=== PATIENT | male | born 1960 | race African-American/Black ===

== ENCOUNTER 2016-10-23 10:32 | Inpatient (IN) | payer MEDICAID, OTHER ==
[~2016-10-23] VITALS: Ht 170.2 cm; Wt 84.8 kg
[~2016-10-23 10:32] MED LIST: ASPI-1159 PO; ATOR-2 PO; CARV12.545 PO; CLON2TAB PO; CLOP75TA2 PO; DOCU-150 PO; FERR-63 PO; GABA-531 PO; IBUP-1509 PO; IOHEXOL-300 100 ML BOTTLE ONE; LISI-186 PO; METF10002 PO; NAPR-681 PO; OXCA300T4 PO; QUET400T PO; SODIUM CHLORIDE 0.9% 10ML VIAL ONE; TAMS0.4C31 PO
[2016-10-23] MEDS ORDERED: KETOROLAC 30MG/ML VIAL IV STA (11:34)
[2016-10-23] MEDS ORDERED: ONDANSETRON HCL 4MG/2ML VIAL IV STA (11:34)
[2016-10-23] MEDS ORDERED: MAGNESIUM CITRATE 300ML SOLUTION PO ONE (11:45)
[2016-10-23 12:02] LABS: BASOPHILS % 0.9 % (0.0-2.0); EOSINOPHILS % 1.5 % (0.0-5.0); HEMATOCRIT. 40.5 % (42.0-52.0); HEMOGLOBIN. 13.3 g/dL (14.0-18.0); LYMPHOCYTES % 24.3 % (20.0-50.0); MEAN CORPUSCULAR HEMOGLOBIN 24.9 pg (28.0-32.0); MEAN CORPUSCULAR VOLUME 76.2 fL (80.0-94.0); MEAN PLATELET VOLUME 8.2 fl (7.4-10.4); MONOCYTES % 13.2 % (2.0-8.0); NEUTROPHILS % 60.1 % (40.0-76.0); PLATELET 217 x1000/uL (130-400); RED BLOOD CELL COUNT 5.32 mill/uL (4.7-6.1); RED CELL DISTRIBUTION WIDTH 20.6 % (11.6-14.6)
[2016-10-23 12:09] LABS: CHLORIDE 100 mEq/L (98-107); INR 1.1; PROTHROMBIN TIME 11.1 sec (9.4-11.6)
[2016-10-23 12:17] LABS: CARBON DIOXIDE 25 mEq/L (21-32)
[2016-10-23 12:41] LABS: CLARITY URINE CLEAR (CLEAR); COLOR URINE YELLOW (YELLOW); GLUCOSE URINE NEGATIVE (NEGATIVE); KETONES URINE NEGATIVE (NEGATIVE); LEUKOCYTE ESTERASE URINE NEGATIVE (NEGATIVE); NITRITE URINE NEGATIVE (NEGATIVE); OCCULT BLOOD URINE NEGATIVE (NEGATIVE); PH URINE 7.5 (4.5-8.0); PROTEIN URINE NEGATIVE (NEGATIVE); SPECIFIC GRAVITY URINE 1.021 (1.005-1.030); UROBILINOGEN URINE 0.2 E.U./dL (0.2-1.0)
[2016-10-23 13:10] LABS: *AMPHETAMINES SCREEN URINE NEGATIVE (NEGATIVE); *BARBITURATES SCREEN URINE NEGATIVE (NEGATIVE); *BENZODIAZEPINES SCREEN URINE NEGATIVE (NEGATIVE); *COCAINE SCREEN URINE NEGATIVE (NEGATIVE); CANNABINOID URINE SCREEN NEGATIVE (NEGATIVE); METHADONE URINE SCREEN NEGATIVE (NEGATIVE); OPIATES URINE SCREEN NEGATIVE (NEGATIVE); PHENCYCLIDINE URINE SCREEN NEGATIVE (NEGATIVE)
[2016-10-23] MEDS ORDERED: DOCUSATE SODIUM 250MG CAPSULE PO ONE (14:15)
[2016-10-23] MEDS ORDERED: MORPHINE SULFATE 2 MG/ML CPJ (NOT FOR IM USE) IV ONE (14:30)
[2016-10-23] MEDS ORDERED: ONDANSETRON HCL 4MG/2ML VIAL IV ONE (14:30)
[2016-10-23] MEDS ORDERED: MORPHINE SULFATE 4 MG/ML CPJ (NOT FOR IM USE) IV ONE (14:45)
[2016-10-23 16:07] VITALS: BP 96/54
[2016-10-23] MEDS ORDERED: ABIL5 PO (16:34)
[2016-10-23] MEDS ORDERED: FAMO-134 PO (16:34)
[2016-10-23] MEDS ORDERED: ALBU18HF2 IH (16:46)
[2016-10-23] MEDS ORDERED: ELIQUIS PO (16:46)
[2016-10-23] MEDS ORDERED: DULO30CA2 PO (16:49)
[2016-10-23] MEDS ORDERED: CLON1TAB4 PO (16:49)
[2016-10-23] MEDS ORDERED: CLONIDINE 0.1MG TABLET PO PRN (17:15)
[2016-10-23] MEDS ORDERED: HYDROCODONE/ACETAMINOPHEN 5/325MG TABLET PO PRN (17:15)
[2016-10-23] MEDS ORDERED: IPRATROPIUM/ALBUTEROL 0.5-3(2.5)MG/3ML NEB INH PRN (17:15)
[2016-10-23] MEDS ORDERED: ONDANSETRON HCL 4MG/2ML VIAL IV PRN (17:15)
[2016-10-23] MEDS ORDERED: ACETAMINOPHEN 325MG TABLET PO PRN (17:15)
[2016-10-23] MEDS ORDERED: DIPHENHYDRAMINE 50MG/ML VIAL IV PRN (17:15)
[2016-10-23] MEDS ORDERED: DEXTROSE 50% WATER 50ML SYRINGE IV PRN (17:30)
[2016-10-23] MEDS: BLOOD SUGAR DIAGNOSTIC STRIP TEST SCH ×2 (17:50→21:13)
[2016-10-23] MEDS: INSULIN LISPRO 100 UNITS/ML SUBCUT SCH ×2 (17:50→21:13)
[2016-10-23] MEDS: MORPHINE SULFATE 4 MG/ML CPJ (NOT FOR IM USE) IV PRN ×2 (19:05→23:32)
[2016-10-23 20:00] VITALS: BP 107/60
[2016-10-23] MEDS ORDERED: DOCUSATE SODIUM 100MG CAPSULE PO PRN (20:30)
[2016-10-23] MEDS ORDERED: TAMSULOSIN HCL 0.4MG SR CAPSULE PO SCH (21:00)
[2016-10-23] MEDS ORDERED: QUETIAPINE FUMARATE 100MG TABLET PO SCH (21:00)
[2016-10-23] MEDS: CARVEDILOL 12.5MG TABLET PO SCH (21:00)
[2016-10-24] VITALS: BP 106/49
[2016-10-24 04:00] VITALS: BP 96/62
[2016-10-24] MEDS: BLOOD SUGAR DIAGNOSTIC STRIP TEST SCH ×2 (06:17→12:50)
[2016-10-24 06:24] LABS: BASOPHILS % 0.7 % (0.0-2.0); HEMATOCRIT. 39.4 % (42.0-52.0); HEMOGLOBIN. 12.9 g/dL (14.0-18.0); LYMPHOCYTES % 27.1 % (20.0-50.0); MEAN CORPUSCULAR HEMOGLOBIN 25.3 pg (28.0-32.0); MEAN CORPUSCULAR VOLUME 77.1 fL (80.0-94.0); MEAN PLATELET VOLUME 8.1 fl (7.4-10.4); MONOCYTES % 13.7 % (2.0-8.0); NEUTROPHILS % 56.5 % (40.0-76.0); PLATELET 185 x1000/uL (130-400); RED BLOOD CELL COUNT 5.11 mill/uL (4.7-6.1); RED CELL DISTRIBUTION WIDTH 20.7 % (11.6-14.6)
[2016-10-24 07:10] LABS: CARBON DIOXIDE 27 mEq/L (21-32); CHLORIDE 98 mEq/L (98-107); HDL CHOLESTEROL 45 mg/dL (40-59); LDL CHOLESTEROL 134 mg/dL (5-100)
[2016-10-24] MEDS: NAPROXEN 500MG TABLET PO SCH ×2 (07:50→11:14)
[2016-10-24] MEDS: INSULIN LISPRO 100 UNITS/ML SUBCUT SCH ×3 (07:50→13:07)
[2016-10-24 08:00] VITALS: BP 112/66
[2016-10-24] MEDS: CLOPIDOGREL 75MG TABLET PO SCH ×2 (09:00→11:14)
[2016-10-24] MEDS: OXCARBAZEPINE 300MG TABLET PO SCH ×2 (09:00→11:15)
[2016-10-24] MEDS: CARVEDILOL 12.5MG TABLET PO SCH ×2 (09:00→11:15)
[2016-10-24] MEDS: DULOXETINE HCL 30MG DR CAPSULE PO SCH ×2 (09:00→11:15)
[2016-10-24] MEDS: ASPIRIN 81MG EC TABLET PO SCH ×2 (09:00→11:14)
[2016-10-24] MEDS: LISINOPRIL 5MG TABLET PO SCH ×2 (09:00→11:15)
[2016-10-24] MEDS: GABAPENTIN 300MG CAPSULE PO SCH ×3 (09:00→13:16)
[2016-10-24] MEDS: MORPHINE SULFATE 4 MG/ML CPJ (NOT FOR IM USE) IV PRN (11:16)
[2016-10-24 12:00] VITALS: BP 118/71
[2016-10-24] MEDS ORDERED: SORBITOL 70% SOLN 30ML PO NR (12:30)
[2016-10-24] MEDS ORDERED: EZ-HD(BARIUM SULFATE 135ML BTL) PO ONE (14:00)
[2016-10-24 15:21] VITALS: BP 118/71
[2016-10-24] MEDS ORDERED: CLONAZEPAM 1MG TABLET PO SCH (17:00)
== END 2016-10-24 16:37 | DRG 254 ==
LOC: ER 10:51 → 6EST 15:29 → ENRESERV 15:47
PROVIDERS: ADMIT Internal Medicine; ATTEND Internal Medicine
DX: K59.00 Constipation, unspecified (principal); J84.9 Interstitial pulmonary disease, unspecified; I11.9 Hypertensive heart disease without heart failure; E11.9 Type 2 diabetes mellitus without complications; E78.5 Hyperlipidemia, unspecified; D64.9 Anemia, unspecified; F31.9 Bipolar disorder, unspecified; G89.29 Other chronic pain; I25.5 Ischemic cardiomyopathy; E78.00 Pure hypercholesterolemia, unspecified; I25.10 Atherosclerotic heart disease of native coronary artery without angina pectoris; Z95.810 Presence of automatic (implantable) cardiac defibrillator; Z88.6 Allergy status to analgesic agent; Z79.84 Long term (current) use of oral hypoglycemic drugs; Z79.899 Other long term (current) drug therapy
CPT/HCPCS: 36415; 74177; 74250; 80053; 80061; 80305; 81003; 82962; 83036; 83690; 85025; 85610; 87040; 93005; 96374; 96375; 99285; A4216; J1815; J1885; J2270; J2405; Q9967

== ENCOUNTER 2016-12-18 11:47 | Emergency (ER) | payer OTHER ==
[~2016-12-18] VITALS: Ht 177.8 cm; Wt 80.0 kg
[~2016-12-18 11:47] MED LIST changes: +ABIL5 PO; +ALBU18HF2 IH; +CLON1TAB4 PO; +CLOP75TA16 PO; -CLOP75TA2 PO; +DULO30CA2 PO; +ELIQUIS PO; +FAMO-134 PO; -IBUP-1509 PO; +IBUP-2028 PO; -IOHEXOL-300 100 ML BOTTLE ONE; -SODIUM CHLORIDE 0.9% 10ML VIAL ONE
[2016-12-18] MEDS ORDERED: SODIUM CHLORIDE 0.9% 1,000 ML IV ONE (12:45)
[2016-12-18] MEDS ORDERED: FAMOTIDINE 20MG/2ML VIAL IV STA (12:45)
[2016-12-18 13:09] LABS: BASOPHILS % 0.8 % (0.0-2.0); EOSINOPHILS % 1.5 % (0.0-5.0); HEMATOCRIT. 35.7 % (42.0-52.0); LYMPHOCYTES % 27.2 % (20.0-50.0); MEAN CORPUSCULAR HEMOGLOBIN 27.1 pg (28.0-32.0); MEAN CORPUSCULAR VOLUME 80.5 fL (80.0-94.0); MEAN PLATELET VOLUME 7.9 fl (7.4-10.4); MONOCYTES % 10.7 % (2.0-8.0); NEUTROPHILS % 59.8 % (40.0-76.0); PLATELET 226 x1000/uL (130-400); RED BLOOD CELL COUNT 4.44 mill/uL (4.7-6.1); RED CELL DISTRIBUTION WIDTH 15.7 % (11.6-14.6)
[2016-12-18 13:12] LABS: CHLORIDE 103 mEq/L (98-107)
[2016-12-18 13:20] LABS: CARBON DIOXIDE 25 mEq/L (21-32)
[2016-12-18] MEDS ORDERED: MAGNESIUM/ALUMINUM HYDROXIDE/SIMETHICONE 30ML UDC PO STA (13:42)
[2016-12-18] MEDS ORDERED: DICYCLOMINE 10 MG/5 ML ORAL SYR PO STA (13:42)
[2016-12-18] MEDS ORDERED: VISCOUS LIDOCAINE 2% 15 ML UDC PO STA (13:42)
[2016-12-18] MEDS ORDERED: HYDROXYZINE 25MG TABLET PO ONE (13:45)
[2016-12-18] MEDS ORDERED: ONDANSETRON 4MG ODT PO ONE (13:45)
[2016-12-18 14:25] VITALS: BP 18/75
== END 2016-12-18 15:45 | disposition home or self-care (01) ==
LOC: ER 11:47
DX: L29.9 Pruritus, unspecified (principal); R10.13 Epigastric pain; R11.2 Nausea with vomiting, unspecified; I10 Essential (primary) hypertension; E11.9 Type 2 diabetes mellitus without complications; Z86.59 Personal history of other mental and behavioral disorders; Z88.8 Allergy status to other drugs, medicaments and biological substances; Z79.899 Other long term (current) drug therapy
CPT/HCPCS: 36415; 80053; 83690; 85025; 96361; 96374; 99284; J3490; J7030; Q0162; Z7610

== ENCOUNTER 2018-08-19 13:32 | Emergency (ER) | payer MEDICAID, MEDICARE ==
[~2018-08-19] VITALS: Ht 172.7 cm; Wt 82.0 kg
[~2018-08-19 13:32] MED LIST changes: -ASPI-1159 PO; +ASPI-1393 PO; +CLON1TAB12 PO; -CLON1TAB4 PO; -CLON2TAB PO; -CLOP75TA16 PO; +CLOP75TA4 PO; -IBUP-2028 PO; -LISI-186 PO; +METF-416 PO; -METF10002 PO; -NAPR-681 PO
[2018-08-19 14:56] LABS: CHLORIDE 104 mEq/L (98-107)
[2018-08-19] MEDS ORDERED: MORPHINE SULFATE 4 MG/ML CPJ (NOT FOR IM USE) IV NR (15:00)
[2018-08-19] MEDS ORDERED: ONDANSETRON HCL 4MG/2ML INJ IV ONE (15:00)
[2018-08-19 15:09] LABS: BASOPHILS % 0.9 % (0.0-2.0); EOSINOPHILS % 3.1 % (0.0-5.0); HEMATOCRIT. 32.9 % (42.0-52.0); HEMOGLOBIN. 10.7 g/dL (14.0-18.0); LYMPHOCYTES % 26.8 % (20.0-50.0); MEAN CORPUSCULAR HEMOGLOBIN 25.3 pg (28.0-32.0); MEAN PLATELET VOLUME 8.4 fl (7.4-10.4); MONOCYTES % 11.4 % (2.0-8.0); NEUTROPHILS % 57.8 % (40.0-76.0); PLATELET 192 x1000/uL (130-400); RED BLOOD CELL COUNT 4.22 mill/uL (4.7-6.1); RED CELL DISTRIBUTION WIDTH 17.9 % (11.6-14.6)
[2018-08-19 15:47] LABS: CLARITY URINE CLEAR (CLEAR); COLOR URINE YELLOW (YELLOW); KETONES URINE TRACE (NEGATIVE); LEUKOCYTE ESTERASE URINE NEGATIVE (NEGATIVE); NITRITE URINE NEGATIVE (NEGATIVE); OCCULT BLOOD URINE NEGATIVE (NEGATIVE); PH URINE 5.5 (4.5-8.0); PROTEIN URINE NEGATIVE (NEGATIVE); SPECIFIC GRAVITY URINE 1.023 (1.005-1.030); UROBILINOGEN URINE 0.2 E.U./dL (0.2-1.0)
[2018-08-19] MEDS ORDERED: KETOROLAC 15MG/ML VIAL IV ONE (16:15)
[2018-08-19 17:49] VITALS: BP 124/62
== END 2018-08-19 18:30 | disposition home or self-care (01) ==
LOC: ER 13:32
DX: M54.6 Pain in thoracic spine (principal); M79.10 Myalgia, unspecified site; R51 Headache; R10.13 Epigastric pain; F32.9 Major depressive disorder, single episode, unspecified; E11.9 Type 2 diabetes mellitus without complications; I11.9 Hypertensive heart disease without heart failure; I25.10 Atherosclerotic heart disease of native coronary artery without angina pectoris; Z95.0 Presence of cardiac pacemaker; Z79.82 Long term (current) use of aspirin; Z88.6 Allergy status to analgesic agent; Z88.4 Allergy status to anesthetic agent
CPT/HCPCS: 36415; 71045; 80053; 81003; 83690; 84484; 85025; 93005; 96374; 96375; 99284; J1885; J2270; J2405

== ENCOUNTER 2019-04-27 09:42 | Emergency (ER) | payer MEDICARE ==
[~2019-04-27] VITALS: Ht 170.2 cm; Wt 70.0 kg
[~2019-04-27 09:42] MED LIST changes: -ASPI-1393 PO; +ASPI-1497 PO
[2019-04-27] MEDS ORDERED: KETOROLAC 30MG/ML VIAL IV STA (10:04)
[2019-04-27] MEDS ORDERED: SODIUM CHLORIDE 0.9% 500 ML IV ONE (10:15)
[2019-04-27 12:30] LABS: EOSINOPHILS % 0.7 % (0.0-5.0); HEMATOCRIT. 32.4 % (42.0-52.0); HEMOGLOBIN. 10.7 g/dL (14.0-18.0); LYMPHOCYTES % 13.8 % (20.0-50.0); MEAN CORPUSCULAR HEMOGLOBIN 25.8 pg (28.0-32.0); MEAN CORPUSCULAR VOLUME 78.4 fL (80.0-94.0); MEAN PLATELET VOLUME 8.5 fl (7.4-10.4); MONOCYTES % 12.6 % (2.0-8.0); NEUTROPHILS % 71.9 % (40.0-76.0); PLATELET 138 x1000/uL (130-400); RED BLOOD CELL COUNT 4.14 mill/uL (4.7-6.1); RED CELL DISTRIBUTION WIDTH 17.9 % (11.6-14.6)
[2019-04-27 12:37] LABS: CHLORIDE 107 mEq/L (98-107); INR 1.1; PROTHROMBIN TIME 11.6 sec (9.6-11.0)
[2019-04-27] MEDS ORDERED: TRAMADOL 50MG TABLET PO ONE (13:15)
[2019-04-27 13:24] VITALS: BP 137/88
== END 2019-04-27 14:28 | disposition home or self-care (01) ==
LOC: ER 09:42
DX: R10.9 Unspecified abdominal pain (principal); E11.9 Type 2 diabetes mellitus without complications; I25.10 Atherosclerotic heart disease of native coronary artery without angina pectoris; I10 Essential (primary) hypertension; Z88.6 Allergy status to analgesic agent; Z88.8 Allergy status to other drugs, medicaments and biological substances; Z88.5 Allergy status to narcotic agent; Z88.4 Allergy status to anesthetic agent; Z79.82 Long term (current) use of aspirin; Z95.0 Presence of cardiac pacemaker
CPT/HCPCS: 36415; 74021; 74176; 80053; 83690; 84484; 85025; 85610; 96374; 99285; J1885; J7040

== ENCOUNTER 2019-12-12 10:20 | Emergency (ER) | payer MEDICARE ==
[~2019-12-12] VITALS: Ht 165.1 cm; Wt 69.0 kg
[2019-12-12] MEDS ORDERED: VANCOMYCIN 1 G PREMIX 200 ML IV ONE (11:30)
[2019-12-12] MEDS ORDERED: SODIUM CHLORIDE 0.9% 1000ML BAG (SEPSIS BOLUS) IV ONE (11:30)
[2019-12-12] MEDS ORDERED: PIPERACILLIN/TAZ 3.375G PREMIX 50 ML IV ONE (11:30)
[2019-12-12] MEDS ORDERED: AZITHROMYCIN 500 MG in DEXT 5% WATER 250 ML IV ONE (11:30)
[2019-12-12 11:46] LABS: BASOPHILS % 0.4 % (0.0-2.0); EOSINOPHILS % 1.1 % (0.0-5.0); HEMOGLOBIN. 11.3 g/dL (14.0-18.0); LYMPHOCYTES % 10.5 % (20.0-50.0); MEAN PLATELET VOLUME 9.5 fl (7.4-10.4); MONOCYTES % 8.8 % (2.0-8.0); NEUTROPHILS % 79.2 % (40.0-76.0); PLATELET 190 x1000/uL (130-400); RED BLOOD CELL COUNT 4.04 mill/uL (4.7-6.1); RED CELL DISTRIBUTION WIDTH 15.4 % (11.6-14.6)
[2019-12-12 11:51] LABS: CHLORIDE 106 mEq/L (98-107)
[2019-12-12 11:59] LABS: ETHANOL BLOOD < 10 mg/dL
[2019-12-12] MEDS ORDERED: MORPHINE SULFATE 4 MG/ML CPJ (NOT FOR IM USE) IV ONE (12:00)
[2019-12-12 12:41] LABS: CLARITY URINE CLEAR (CLEAR); COLOR URINE YELLOW (YELLOW); KETONES URINE NEGATIVE (NEGATIVE); LEUKOCYTE ESTERASE URINE TRACE (NEGATIVE); NITRITE URINE NEGATIVE (NEGATIVE); OCCULT BLOOD URINE NEGATIVE (NEGATIVE); PROTEIN URINE NEGATIVE (NEGATIVE); SPECIFIC GRAVITY URINE 1.017 (1.005-1.030); UROBILINOGEN URINE 0.2 E.U./dL (0.2-1.0)
[2019-12-12 13:10] LABS: *BARBITURATES SCREEN URINE NEGATIVE (NEGATIVE); *COCAINE SCREEN URINE NEGATIVE (NEGATIVE); CANNABINOID URINE SCREEN NEGATIVE (NEGATIVE); METHADONE URINE SCREEN NEGATIVE (NEGATIVE); OPIATES URINE SCREEN NEGATIVE (NEGATIVE); PHENCYCLIDINE URINE SCREEN NEGATIVE (NEGATIVE)
[2019-12-12 13:11] LABS: *AMPHETAMINES SCREEN URINE PRESUMTIVE POSITIVE (NEGATIVE); *BENZODIAZEPINES SCREEN URINE PRESUMTIVE POSITIVE (NEGATIVE)
[2019-12-12] MEDS ORDERED: ACETAMINOPHEN 650MG/20.3ML UDC PO PRN (17:45)
[2019-12-12] MEDS ORDERED: MORPHINE SULFATE 2 MG/ML CPJ (NOT FOR IM USE) IV PRN (18:00)
[2019-12-12 21:03] VITALS: BP 109/66
== END 2019-12-12 22:05 | disposition short-term general hospital (02) ==
LOC: ER 10:20 → CANBEDREQ 14:26 → ER 22:05
DX: I95.9 Hypotension, unspecified (principal); E11.9 Type 2 diabetes mellitus without complications; I10 Essential (primary) hypertension; Z20.828 Contact with and (suspected) exposure to other viral communicable diseases; Z88.6 Allergy status to analgesic agent; Z88.8 Allergy status to other drugs, medicaments and biological substances; Z88.5 Allergy status to narcotic agent; Z88.4 Allergy status to anesthetic agent; Z79.899 Other long term (current) drug therapy
CPT/HCPCS: 36415; 71045; 74176; 80053; 80305; 80320; 81003; 82962; 83605; 83690; 83880; 84484; 85025; 86850; 86900; 86901; 87040; 87086; 87426; 93005; 96365; 96367; 96368; 96375; 96376; 99285; J0456; J2270; J2543; J3370; J7060; J7030; G0480

== ENCOUNTER 2020-07-22 03:37 | Emergency (ER) | payer MEDICARE ==
[~2020-07-22] VITALS: Ht 170.2 cm; Wt 73.0 kg
[~2020-07-22 03:37] MED LIST changes: +CLOP-31 PO; -CLOP75TA4 PO; -GABA-531 PO; +GABA-532 PO
[2020-07-22] MEDS ORDERED: ONDANSETRON HCL 4MG/2ML INJ IV STA ×2 (04:06→08:51)
[2020-07-22] MEDS ORDERED: KETOROLAC 30MG/ML VIAL IV STA (04:06)
[2020-07-22] MEDS ORDERED: SODIUM CHLORIDE 0.9% 1,000 ML IV ONE (04:15)
[2020-07-22 04:31] LABS: BASOPHILS % 0.8 % (0.0-2.0); EOSINOPHILS % 1.6 % (0.0-5.0); HEMATOCRIT. 32.3 % (42.0-52.0); HEMOGLOBIN. 10.3 g/dL (14.0-18.0); MEAN CORPUSCULAR HEMOGLOBIN 25.4 pg (28.0-32.0); MEAN CORPUSCULAR VOLUME 79.2 fL (80.0-94.0); MEAN PLATELET VOLUME 7.9 fl (7.4-10.4); MONOCYTES % 12.2 % (2.0-8.0); NEUTROPHILS % 58.4 % (40.0-76.0); PLATELET 217 x1000/uL (130-400); RED BLOOD CELL COUNT 4.08 mill/uL (4.7-6.1); RED CELL DISTRIBUTION WIDTH 15.5 % (11.6-14.6)
[2020-07-22 04:43] LABS: CHLORIDE 107 mEq/L (98-107)
[2020-07-22 06:42] LABS: CLARITY URINE CLEAR (CLEAR); COLOR URINE YELLOW (YELLOW); KETONES URINE NEGATIVE (NEGATIVE); LEUKOCYTE ESTERASE URINE NEGATIVE (NEGATIVE); NITRITE URINE NEGATIVE (NEGATIVE); OCCULT BLOOD URINE NEGATIVE (NEGATIVE); PH URINE 5.5 (4.5-8.0); PROTEIN URINE NEGATIVE (NEGATIVE); SPECIFIC GRAVITY URINE 1.012 (1.005-1.030); UROBILINOGEN URINE 0.2 E.U./dL (0.2-1.0)
[2020-07-22] MEDS ORDERED: MORPHINE SULFATE 4 MG/ML CPJ (NOT FOR IM USE) IV STA (08:51)
[2020-07-22 12:43] VITALS: BP 153/76
== END 2020-07-22 13:26 | disposition short-term general hospital (02) ==
LOC: ER 04:25
DX: R10.31 Right lower quadrant pain (principal); I11.9 Hypertensive heart disease without heart failure; F32.9 Major depressive disorder, single episode, unspecified; E11.9 Type 2 diabetes mellitus without complications; I25.10 Atherosclerotic heart disease of native coronary artery without angina pectoris; Z87.442 Personal history of urinary calculi; Z95.0 Presence of cardiac pacemaker; Z79.01 Long term (current) use of anticoagulants; Z88.6 Allergy status to analgesic agent
CPT/HCPCS: 36415; 74176; 80053; 81003; 83690; 85025; 93005; 96361; 96374; 96375; 96376; 99285; J1885; J2270; J2405; J7030

== ENCOUNTER 2020-10-13 18:11 | Emergency (ER) | payer MEDICAID, MEDICARE ==
[~2020-10-13] VITALS: Ht 180.3 cm; Wt 80.0 kg
[~2020-10-13 18:11] MED LIST changes: -CLOP-31 PO; +CLOP75TA4 PO
[2020-10-13 21:45] LABS: BASOPHILS % 0.5 % (0.0-2.0); EOSINOPHILS % 0.8 % (0.0-5.0); HEMATOCRIT. 29.7 % (42.0-52.0); HEMOGLOBIN. 9.4 g/dL (14.0-18.0); LYMPHOCYTES % 14.2 % (20.0-50.0); MEAN CORPUSCULAR HEMOGLOBIN 24.5 pg (28.0-32.0); MEAN CORPUSCULAR VOLUME 77.2 fL (80.0-94.0); MEAN PLATELET VOLUME 8.5 fl (7.4-10.4); MONOCYTES % 8.8 % (2.0-8.0); NEUTROPHILS % 75.7 % (40.0-76.0); PLATELET 211 x1000/uL (130-400); RED BLOOD CELL COUNT 3.84 mill/uL (4.7-6.1); RED CELL DISTRIBUTION WIDTH 17.8 % (11.6-14.6)
[2020-10-13 21:51] LABS: CHLORIDE 108 mEq/L (98-107); CLARITY URINE CLEAR (CLEAR); COLOR URINE YELLOW (YELLOW); KETONES URINE NEGATIVE (NEGATIVE); LEUKOCYTE ESTERASE URINE NEGATIVE (NEGATIVE); NITRITE URINE NEGATIVE (NEGATIVE); OCCULT BLOOD URINE NEGATIVE (NEGATIVE); PROTEIN URINE NEGATIVE (NEGATIVE); SPECIFIC GRAVITY URINE 1.013 (1.005-1.030); UROBILINOGEN URINE 0.2 E.U./dL (0.2-1.0)
[2020-10-13 21:55] LABS: ETHANOL BLOOD < 10 mg/dL
[2020-10-13 22:06] LABS: *AMPHETAMINES SCREEN URINE NEGATIVE (NEGATIVE); *BARBITURATES SCREEN URINE NEGATIVE (NEGATIVE); *BENZODIAZEPINES SCREEN URINE NEGATIVE (NEGATIVE); *COCAINE SCREEN URINE NEGATIVE (NEGATIVE)
[2020-10-13 22:07] LABS: CANNABINOID URINE SCREEN NEGATIVE (NEGATIVE); METHADONE URINE SCREEN NEGATIVE (NEGATIVE); OPIATES URINE SCREEN PRESUMTIVE POSITIVE (NEGATIVE); PHENCYCLIDINE URINE SCREEN NEGATIVE (NEGATIVE)
[2020-10-13] MEDS ORDERED: MECLIZINE 25MG TABLET PO ONE (22:30)
[2020-10-13] MEDS ORDERED: MORPHINE SULFATE 2 MG/ML CPJ (NOT FOR IM USE) IV ONE (23:30)
[2020-10-13] MEDS ORDERED: ONDANSETRON HCL 4MG/2ML INJ IV ONE (23:30)
[2020-10-14] MEDS ORDERED: SODIUM CHLORIDE 0.9% 1,000 ML IV ONE
[2020-10-14 01:12] LABS: CHLORIDE 111 mEq/L (98-107)
[2020-10-14] MEDS ORDERED: MECL-159 MT (01:49)
[2020-10-14 03:21] VITALS: BP 126/80
== END 2020-10-14 03:32 | disposition home or self-care (01) ==
LOC: ER 18:17
DX: R42 Dizziness and giddiness (principal); E11.9 Type 2 diabetes mellitus without complications; I11.9 Hypertensive heart disease without heart failure; F32.9 Major depressive disorder, single episode, unspecified; Z79.84 Long term (current) use of oral hypoglycemic drugs; Z95.0 Presence of cardiac pacemaker; Z88.6 Allergy status to analgesic agent; W01.0XXA Fall on same level from slipping, tripping and stumbling without subsequent striking against object, initial encounter; Y93.89 Activity, other specified; Y92.128 Other place in nursing home as the place of occurrence of the external cause
CPT/HCPCS: 36415; 70450; 80048; 80053; 80305; 80320; 81003; 82962; 85025; 93005; 96374; 96375; 99285; J2270; J2405; J7030; J8597; G0480

== ENCOUNTER 2021-04-25 11:58 | Emergency (ER) | payer MEDICARE ==
[~2021-04-25] VITALS: Ht 165.1 cm; Wt 73.0 kg
[~2021-04-25 11:58] MED LIST changes: +CLOP-31 PO; -CLOP75TA4 PO; +MECL-159 MT
[2021-04-25 14:09] LABS: BASOPHILS % 0.9 % (0.0-2.0); EOSINOPHILS % 2.8 % (0.0-5.0); HEMATOCRIT. 33.6 % (42.0-52.0); HEMOGLOBIN. 10.7 g/dL (14.0-18.0); LYMPHOCYTES % 18.9 % (20.0-50.0); MEAN CORPUSCULAR HEMOGLOBIN 24.4 pg (28.0-32.0); MEAN CORPUSCULAR VOLUME 76.6 fL (80.0-94.0); MEAN PLATELET VOLUME 8.6 fl (7.4-10.4); MONOCYTES % 10.2 % (2.0-8.0); NEUTROPHILS % 67.2 % (40.0-76.0); PLATELET 259 x1000/uL (130-400); RED BLOOD CELL COUNT 4.39 mill/uL (4.7-6.1); RED CELL DISTRIBUTION WIDTH 16.9 % (11.6-14.6)
[2021-04-25 14:13] LABS: CHLORIDE 111 mEq/L (98-107)
[2021-04-25 14:19] LABS: ETHANOL BLOOD < 10 mg/dL
[2021-04-25] MEDS ORDERED: METHYLPREDNISOLONE SOD SUCC 125 MG/2 ML VIAL IV NR (15:00)
[2021-04-25 17:23] LABS: CLARITY URINE CLEAR (CLEAR); COLOR URINE YELLOW (YELLOW); KETONES URINE TRACE (NEGATIVE); LEUKOCYTE ESTERASE URINE NEGATIVE (NEGATIVE); NITRITE URINE NEGATIVE (NEGATIVE); OCCULT BLOOD URINE NEGATIVE (NEGATIVE); PROTEIN URINE TRACE (NEGATIVE); SPECIFIC GRAVITY URINE 1.022 (1.005-1.030); UROBILINOGEN URINE 0.2 E.U./dL (0.2-1.0)
[2021-04-25 17:54] LABS: *BARBITURATES SCREEN URINE NEGATIVE (NEGATIVE)
[2021-04-25 17:55] LABS: *AMPHETAMINES SCREEN URINE NEGATIVE (NEGATIVE); *BENZODIAZEPINES SCREEN URINE PRESUMTIVE POSITIVE (NEGATIVE); CANNABINOID URINE SCREEN NEGATIVE (NEGATIVE); METHADONE URINE SCREEN NEGATIVE (NEGATIVE); OPIATES URINE SCREEN NEGATIVE (NEGATIVE); PHENCYCLIDINE URINE SCREEN NEGATIVE (NEGATIVE)
[2021-04-25 17:56] LABS: *COCAINE SCREEN URINE NEGATIVE (NEGATIVE)
[2021-04-25 19:07] VITALS: BP 128/77
== END 2021-04-25 19:09 | disposition home or self-care (01) ==
LOC: ER 11:58
DX: R10.9 Unspecified abdominal pain (principal); R30.0 Dysuria; R05.9 Cough, unspecified; Z20.822 Contact with and (suspected) exposure to COVID-19; R11.0 Nausea; I11.9 Hypertensive heart disease without heart failure; E11.9 Type 2 diabetes mellitus without complications; I25.10 Atherosclerotic heart disease of native coronary artery without angina pectoris; F16.90 Hallucinogen use, unspecified, uncomplicated; F13.90 Sedative, hypnotic, or anxiolytic use, unspecified, uncomplicated; Z79.84 Long term (current) use of oral hypoglycemic drugs; Z79.899 Other long term (current) drug therapy; Z95.0 Presence of cardiac pacemaker; Z88.6 Allergy status to analgesic agent; Z88.8 Allergy status to other drugs, medicaments and biological substances
CPT/HCPCS: 36415; 71045; 74176; 80053; 80305; 80320; 81003; 83690; 83880; 84484; 85025; 87426; 96374; 99285; J2930; G0480

== ENCOUNTER 2021-08-15 11:38 | Emergency (ER) | payer MEDICAID, MEDICARE ==
[~2021-08-15] VITALS: Ht 165.1 cm; Wt 78.0 kg
[2021-08-15 13:14] LABS: BASOPHILS % 1.3 % (0.0-2.0); EOSINOPHILS % 1.7 % (0.0-5.0); HEMATOCRIT. 29.7 % (42.0-52.0); HEMOGLOBIN. 9.2 g/dL (14.0-18.0); LYMPHOCYTES % 17.9 % (20.0-50.0); MEAN CORPUSCULAR HEMOGLOBIN 22.6 pg (28.0-32.0); MEAN CORPUSCULAR VOLUME 73.3 fL (80.0-94.0); MEAN PLATELET VOLUME 8.3 fl (7.4-10.4); MONOCYTES % 8.6 % (2.0-8.0); NEUTROPHILS % 70.5 % (40.0-76.0); PLATELET 226 x1000/uL (130-400); RED BLOOD CELL COUNT 4.05 mill/uL (4.7-6.1); RED CELL DISTRIBUTION WIDTH 18.9 % (11.6-14.6)
[2021-08-15 13:22] LABS: CHLORIDE 109 mEq/L (98-107)
[2021-08-15] MEDS ORDERED: ALBUTEROL (0.083%) 2.5MG/3ML NEB HHN STA (14:07)
[2021-08-15] MEDS ORDERED: METHYLPREDNISOLONE SOD SUCC 125 MG/2 ML VIAL IV STA (14:07)
[2021-08-15] MEDS ORDERED: IPRATROPIUM BROMIDE (0.02%) 0.5MG/2.5ML NEB HHN STA (14:07)
[2021-08-15] MEDS ORDERED: ASPIRIN 81MG TABLET PO ONE (14:15)
[2021-08-15] MEDS ORDERED: AZITHROMYCIN 500MG/250ML 250 ML IV ONE (15:30)
[2021-08-15] MEDS ORDERED: CEFTRIAXONE 1 G PREMIX 50 ML IV ONE (15:30)
[2021-08-15] MEDS ORDERED: MORPHINE SULFATE 4 MG/ML CPJ (NOT FOR IM USE) IV ONE ×2 (16:15→20:00)
[2021-08-15 20:52] VITALS: BP 140/68
== END 2021-08-15 21:21 | disposition short-term general hospital (02) ==
LOC: ER 11:46
DX: J44.1 Chronic obstructive pulmonary disease with (acute) exacerbation (principal); R07.89 Other chest pain; I11.9 Hypertensive heart disease without heart failure; E11.9 Type 2 diabetes mellitus without complications; F32.A Depression, unspecified; E78.00 Pure hypercholesterolemia, unspecified; I25.10 Atherosclerotic heart disease of native coronary artery without angina pectoris; Z95.0 Presence of cardiac pacemaker; Z79.84 Long term (current) use of oral hypoglycemic drugs; Z88.6 Allergy status to analgesic agent; Z79.82 Long term (current) use of aspirin
CPT/HCPCS: 36415; 71045; 80053; 83880; 84484; 85025; 93005; 94640; 94664; 96365; 96375; 96376; 99285; J0456; J0696; J2270; J2930; Z7610